=== PATIENT | male | born 1935 | race Caucasian/White ===

== ENCOUNTER 2020-06-23 06:33 | Day surgery (SDC) | payer MEDICARE, OTHER ==
[2020-06-23] MEDS ORDERED: Propofol 200 MG/20 ML SDV IV ONE (06:34)
[2020-06-23] MEDS ORDERED: Sodium Chloride 0.9% 10 ML Syringe FLUSH PRN (06:45)
[2020-06-23] MEDS ORDERED: Lactated Ringers 1,000 ML IV SCH (06:45)
--- NOTE | 2020-06-23 09:55 | PCM.OPNOTE ---
- General Post-Op/Procedure Note Date of Surgery/Procedure: 06/23/20 Operative Procedure(s): c scope with cold forceps biopsy. hemorrhoid banding Findings: diverticulosis of sigmoid colon sigmoid polyp grade 2 hemorrhoids Pre Op Diagnosis: hx of colon polyps. hx of hemorrhoids Post-Op Diagnosis: diverticulosis of sigmoid colon. sigmoid polyp. grade 2 hemorrhoids Anesthesia Technique: MAC Primary Surgeon: Ash Gallardo Anesthesia Provider: Robi Bocanegra Pathology: sigmoid polyp Complications: None Condition: Good Free Text/Narrative:: see dictation:[id number]
[2020-06-23 10:32] VITALS: BP 156/62; PULSE 68
--- NOTE | 2020-06-23 12:25 | OR ---
DATE OF OPERATION: 06/23/2020 SURGEON: Ash Gallardo MD PROCEDURES PERFORMED: Colonoscopy with cold forceps biopsy and hemorrhoid banding. PREOPERATIVE DIAGNOSES: Personal history of colon polyps and history of hemorrhoids. POSTOPERATIVE DIAGNOSES: Sigmoid colon polyp; internal hemorrhoids grade 2, left lateral, right anterior, and right posterior column; as well as diverticulosis of the sigmoid colon. INDICATIONS FOR PROCEDURE: This is an 85-year-old white male who has had hemorrhoid bandings in the past, had some issues with recurrence. In addition, he has a history of colon polyps. He was offered and accepted the combined procedure. DESCRIPTION OF OPERATION: After an excellent IV sedation was administered, digital rectal exam was performed. No marked abnormality was noted. Flexible colonoscope was inserted and advanced to the cecum without difficulty. Prep was excellent. Following findings were noted. After identifying the cecum by its usual anatomic markers, the scope was slowly withdrawn. Ascending colon, unremarkable. Transverse colon, unremarkable. Descending colon, unremarkable. Sigmoid, occasional diverticula was noted. Rectum, on retroflexion of scope, there was evidence of what appeared to be grade 2 hemorrhoids; left lateral, right anterior, and right posterior column. The scope was then removed. The anoscope was then inserted and the hemorrhoid suction engineering intern was used to place two bands on the base of the hemorrhoids. The internal hemorrhoids at the left lateral, right anterior, and right posterior column. After completing this, the anoscope was removed. The patient tolerated the procedure well, was taken to recovery. Results will be sent by letter. /[id number] /PIAL
== END 2020-06-23 10:30 | disposition home or self-care (01) ==
LOC: FB.SDS 06:33
PROVIDERS: ATTEND Surgery
DX: D12.5 Benign neoplasm of sigmoid colon (principal); K64.2 Third degree hemorrhoids; K57.30 Diverticulosis of large intestine without perforation or abscess without bleeding; K21.9 Gastro-esophageal reflux disease without esophagitis; I10 Essential (primary) hypertension; Z86.010 Personal history of colon polyps; Z88.1 Allergy status to other antibiotic agents; Z88.8 Allergy status to other drugs, medicaments and biological substances; Z79.899 Other long term (current) drug therapy; Z90.49 Acquired absence of other specified parts of digestive tract; Z98.890 Other specified postprocedural states
CPT/HCPCS: 00812; 45380; 46221; 88305; J2704; J7120